=== PATIENT | male | born 1950 | race Caucasian/White ===

== ENCOUNTER 2019-07-21 21:12 | Emergency (ER) | payer OTHER ==
[~2019-07-21] VITALS: Ht 185.4 cm; Wt 133.8 kg
[~2019-07-21 21:12] MED LIST: ALLOPURINOL 10100 M1 PO; ASPIR 8181 MG PO; CENTRUM SILVER1 EAC4 PO; CINNAMON500 MG PO; COREG6.25 MG PO; COZAAR 25 MG TA25 M1 PO; FISH OIL 1,001000 M2 PO; FLONASE 0.05%50 MCG NASAL; KEFLEX500 MG PO; KLOR-CON 1010 MEQ PO; LANTUS SUBQ; LASIX 40 MG TAB40 M2 PO; LIPITOR 20 MG T20 M1 PO; MIRAPEX1 MG PO; NEURONTIN 300300 M1 PO; NITROGLYCERIN0.4 MG SUBLING; NOVOLOG100 UNIT/1 SUBQ; PERCOCET PO; PLAVIX 75 MG TA75 M1 PO; TOPAMAX 25 MG T25 M1 PO; VITAMINC500 PO; WAL-PHED 12 HO120 MG PO; WELLBUTRIN 75 M75 M1 PO
[2019-07-21] MEDS ORDERED: AZELASTINE205.5 MCG/ NARES (21:34)
[2019-07-21] MEDS ORDERED: WELLBUTRIN 100100 MG PO (21:35)
[2019-07-21] MEDS ORDERED: JARDIANCE10 MG PO (21:36)
[2019-07-21] MEDS ORDERED: FISH OIL 1,0001 EAC9 PO (21:37)
[2019-07-21] MEDS ORDERED: SINGULAIR 10 MG10 M1 PO (21:38)
[2019-07-21 21:53] LABS: ABSOLUTE BASOPHILS 0.1 thou/uL (0.0-0.2); ABSOLUTE EOSINOPHILS 0.2 thou/uL (0.0-0.7); ABSOLUTE LYMPHOCYTES 1.7 thou/uL (0.8-5.3); ABSOLUTE NEUTROPHILS 5.1 thou/uL (1.6-8.1); BASOPHILS 0.8 %; EOSINOPHILS 2.5 %; HEMATOCRIT 44.4 % (42.0-52.0); HEMOGLOBIN 15.2 gm/dL (14.0-18.0); MCH 31.8 pg (26.0-34.0); MCHC 34.2 g/dL (28.0-37.0); MCV 92.9 fL (80.0-100.0); MPV 8.8 fl. (7.2-11.1); NUCLEATED RBCS 0 /100WBC; PLATELET COUNT* 157 thou/uL (150-400); POLYS 63.7 %; RBC 4.78 mil/uL (4.50-6.00); RDW-CV 14.2 % (10.5-14.5)
[2019-07-21 21:58] LABS: CALCIUM 8.8 mg/dL (8.5-10.1); CREATININE 1.4 mg/dL (0.6-1.3); POTASSIUM 3.5 mmol/L (3.5-5.1)
[2019-07-21 22:08] LABS: ALBUMIN 3.2 g/dL (3.4-5.0); TOTAL BILIRUBIN 0.4 mg/dL (<0.1-1.0)
[2019-07-21 23:01] VITALS: BP 137/62
--- NOTE | 2019-07-24 11:23 | EKG ---
[place] [address] ELECTROCARDIOGRAM REPORT Name: TAD BRIGGS [id number] Admission: 07/21/19 Attend Phys: Discharge: 07/21/19 Date of : 46 Report #: [id number] THIS REPORT FOR: //name// [facility] ED Test Date: 2019-07-21 Test Time: 21:19:55 Pat Name: TAD BRIGGS Department: Room: Gender: M Momd Teacher: BRENDA : 1950 Requested By: Michael Amaya Order Number: [id number] MD: Juan Diego Rosenthal Measurements Intervals [place] Rate: 67 P: 48 IA: 211 QRS: 66 QRSD: 173 T: 0 QT: 449 QTc: 474 Interpretive Statements Sinus rhythm Ventricular premature complex Right bundle branch block Compared to ECG 08/23/2008 00:55:48 Ventricular premature complex(es) now present Electronically Signed On 07-24-2019 11:23:43 [employer]OV[employer] SPECIALIST by Juan Diego Rosenthal [email or web address] <ELECTRONICALLY SIGNED> By: Juan Diego Rosenthal MD, [facility] 07/24/19 1123 18 18 Juan Diego Rosenthal MD, FACC /EPI
== END 2019-07-21 23:03 | disposition home or self-care (01) ==
LOC: M.ERS 21:12
PROVIDERS: Emergency Medicine
DX: R07.89 Other chest pain (principal); I11.0 Hypertensive heart disease with heart failure; I50.9 Heart failure, unspecified; E11.9 Type 2 diabetes mellitus without complications; E78.00 Pure hypercholesterolemia, unspecified; Z87.442 Personal history of urinary calculi; Z95.5 Presence of coronary angioplasty implant and graft; Z79.4 Long term (current) use of insulin; Z88.0 Allergy status to penicillin